=== PATIENT | female | born 1975 | race Caucasian/White ===

== ENCOUNTER 2016-10-27 07:46 | Day surgery (SDC) | payer BC, MEDICAID ==
[2016-10-24 11:23] LABS: HEMATOCRIT 33.8 % (36.0-47.0); HEMOGLOBIN 11.4 g/dL (12.0-15.5); HGB HCT DIFFERENCE 0.4; MEAN CORPUSCULAR HEMOGLOBIN 29.4 pg (27.0-33.4); MEAN CORPUSCULAR HGB CONC 33.7 g/dL (32.0-36.0); MEAN CORPUSCULAR VOLUME 87 fl (80-97); RED BLOOD COUNT 3.87 10^6/uL (3.72-5.28); RED CELL DISTRIBUTION WIDTH 14.2 % (11.5-14.0)
[2016-10-24 11:27] LABS: APPEARANCE,URINE CLEAR
[2016-10-24 11:28] LABS: BILIRUBIN,URINE NEGATIVE (NEGATIVE); GLUCOSE, URINE NEGATIVE (NEGATIVE); KETONES,URINE NEGATIVE (NEGATIVE); LEUKOCYTE ESTERASE,URINE NEGATIVE (NEGATIVE); NITRITE,URINE NEGATIVE (NEGATIVE); PROTEIN,URINE NEGATIVE (NEGATIVE); URINE SPECIFIC GRAVITY 1.017; UROBILINOGEN,URINE NEGATIVE mg/dL (<2.0)
[2016-10-24 11:41] LABS: BACTERIA,URINE 1+ /HPF; WBC,URINE RARE /HPF
--- NOTE | 2016-10-24 11:55 | EKG REPORT ---
SEVERITY:- BORDERLINE ECG - SINUS RHYTHM BORDERLINE R WAVE PROGRESSION, ANTERIOR LEADS : Confirmed by: Ahsan Rodriguez MD 24-Oct-2016 11:53:38
[~2016-10-27 07:46] MED LIST: LACTATED RINGERS 1000 ML IV PRN; LIDOCAINE 0.5% INJ-PF (5 MG/ML) 50 ML SDV SUBCUT PRN
[2016-10-27] MEDS ORDERED: FENTANYL CITRATE INJ/PF 100 MCG/2 ML AMPUL ONE (08:27)
[2016-10-27] MEDS ORDERED: MIDAZOLAM 2 MG/2 ML INJ ONE (08:28)
[2016-10-27] MEDS ORDERED: PROPOFOL INJ 200 MG/20 ML VIAL IV ONE (08:28)
[2016-10-27] MEDS ORDERED: MORPHINE SULFATE 10 MG/ML INJ ONE (08:28)
[2016-10-27 08:38] LABS: POTASSIUM 4.3 mmol/L (3.6-5.0)
[2016-10-27] MEDS ORDERED: METOCLOPRAMIDE HCL INJ/PF 10 MG/2 ML SDV ONE (08:41)
[2016-10-27] MEDS ORDERED: FAMOTIDINE INJ/PF 20 MG/2 ML SDV IV ONE (08:41)
[2016-10-27] MEDS ORDERED: SCOPOLAMINE HYDROBROMIDE 1.5 MG PATCH.TD72 ONE (08:44)
[2016-10-27] MEDS ORDERED: SCOPOLAMINE HYDROBROMIDE 1.5 MG PATCH.TD72 TD ONE (08:45)
[2016-10-27] MEDS ORDERED: DIPHENHYDRAMINE HCL 50 MG/ML VIAL IV PRN (09:49)
[2016-10-27] MEDS ORDERED: MEPERIDINE HCL/PF INJ 25 MG/1 ML DISP.SYRIN IV PRN (09:49)
[2016-10-27] MEDS ORDERED: OXYCODONE-ACETAMINOPHEN 5-325 MG TABLET PO PRN ×4 (09:49→10:10)
[2016-10-27] MEDS ORDERED: FENTANYL CITRATE INJ/PF 100 MCG/2 ML AMPUL IV PRN ×3 (09:49)
[2016-10-27] MEDS ORDERED: MORPHINE SULFATE 10 MG/ML INJ IV PRN (09:49)
[2016-10-27] MEDS ORDERED: PROMETHAZINE HCL INJ 25 MG/1 ML VIAL IV PRN ×2 (09:49)
[2016-10-27] MEDS ORDERED: RINGERS SOLUTION,LACTATED 1,000 ML IV PRN (10:08)
[2016-10-27] MEDS ORDERED: IBUPROFEN 800 MG TABLET PO PRN (10:09)
[2016-10-27] MEDS ORDERED: MORPHINE SULFATE 10 MG/ML INJ IM PRN (10:09)
[2016-10-27] MEDS ORDERED: ACETAMINOPHEN 100 ML IV ONE (10:24)
[2016-10-27 11:50] VITALS: BP 108/59
[2016-10-27] MEDS ORDERED: SUCCINYLCHOLINE CHLORIDE INJ 200 MG/10 ML VIAL ONE (14:23)
[2016-10-27] MEDS ORDERED: GLYCOPYRROLATE INJ 0.4 MG/2 ML VIAL ONE (14:23)
[2016-10-27] MEDS ORDERED: DEXAMETHASONE SOD PHOSPHATE INJ 4 MG/1 ML VIAL ONE (14:23)
[2016-10-27] MEDS ORDERED: LIDOCAINE 2% INJ-PF (20 MG/ML) 10 ML AMPUL ONE (14:23)
[2016-10-27] MEDS ORDERED: ONDANSETRON HCL INJ/PF 4 MG/2 ML SDV ONE (14:23)
[2016-10-27] MEDS ORDERED: KETOROLAC TROMETHAMINE 60 MG/2 ML SDV ONE (14:23)
--- NOTE | 2016-12-06 10:29 | OPERATIVE REPORT E ---
Operative Report NAME: SHELLI GUILLERMO : 1975 AGE: 41Y DATE OF SURGERY: 10/27/2016 ROOM: PREOPERATIVE DIAGNOSIS: MENORRHAGIA. POSTOPERATIVE DIAGNOSIS: MENORRHAGIA. OPERATION: 1. DIAGNOSTIC HYSTEROSCOPIC EXAMINATION. 2. DILATATION AND CURETTAGE. SURGEON: Tor Abrams D.O. ANESTHESIA: General endotracheal. COMPLICATIONS: None. TISSUE REMOVED OR ALTERED: Endometrial curettings. ESTIMATED BLOOD LOSS: 25 mL. FINDINGS: Thickened endometrium on diagnostic hysteroscopic examination. PROCEDURE: Patient was taken into the operating room where she was placed in the dorsal supine position upon the operating room table. She was then administered her general endotracheal anesthesia. Once this was found to be adequate, she was placed in the dorsal lithotomy position in [place] stirrups. She was then prepped and draped in a normal sterile fashion. An open-sided speculum was then placed inside the patient's vagina. The cervix was easily visualized and grasped on the anterior lip of the single-tooth tenaculum. The uterus was then sounded to 8 cm. The cervix was then dilated to a 26-Ukrainian using Tiffanie dilators. Following this, the diagnostic hysteroscopic device was put together and found to be operating properly. A diagnostic hysteroscopic examination was performed which revealed just a thickened endometrium, no evidence of fibroids, polyps, or foreign bodies within the uterine cavity. Following this, the hysteroscope was removed, dilatation and curettage was performed. The endometrial curettings were then sent for pathological analysis. The estimated blood loss was approximately 25 mL. Following this, all instruments were removed from the patient's vagina. There was excellent hemostasis noted. At this point in time, the procedure was terminated. All sponge, lap, needle counts were correct x2. The patient tolerated the procedure well. Patient was taken to the recovery room in stable condition. DICTATING PHYSICIAN: Tor Abrams DO [id number] PHY#: [id number] ID: [id number] JOB#: [id number] ACCT: [id number] cc:Tor Abrams D.O. >
== END 2016-10-27 11:45 | disposition home or self-care (01) ==
LOC: OROUT 07:46
PROVIDERS: ATTEND Obstetrics & Gynecology
PROC: 0UDB8ZX Extraction of Endometrium, Via Natural or Artificial Opening Endoscopic, Diagnostic (ICD-10-PCS; principal; 2016-10-27 09:45)
DX: N92.4 Excessive bleeding in the premenopausal period (principal); I10 Essential (primary) hypertension; E03.9 Hypothyroidism, unspecified; E11.9 Type 2 diabetes mellitus without complications; E66.9 Obesity, unspecified; R01.1 Cardiac murmur, unspecified; G47.33 Obstructive sleep apnea (adult) (pediatric); Z68.42 Body mass index [BMI] 45.0-49.9, adult; Z79.84 Long term (current) use of oral hypoglycemic drugs; Z79.899 Other long term (current) drug therapy
CPT/HCPCS: 93005; 36415 ×2; 82947; 84132; 85027; 81025; 81001; 88305 ×2; 93010; 58558; J2250; J1100; J1885; J3010; J2765; J0330; J2405; J2704; S0028; J3490; J0131; 952; J2270

== ENCOUNTER 2018-03-26 09:55 | Emergency (ER) | payer BC ==
--- NOTE | 2018-03-26 10:27 | ER Document Report ---
HPI - HPI Patient complains to provider of: Not feeling well Onset: Other - Monday after taoist Quality of pain: Achy Pain Level: 4 Context: 42-year-old female started feeling ill after taoist on Monday with body aches myalgias fever nausea she vomited once. No abdominal pain or diarrhea. No flank pain. No runny nose or cough. No chest pain or shortness of breath. No vaginal discharge. Associated Symptoms: None Exacerbated by: Denies Relieved by: Denies Similar symptoms previously: No Recently seen / treated by doctor: No - ROS ROS below otherwise negative: Yes Systems Reviewed and Negative: Yes All other systems reviewed and negative - REPRODUCTIVE Reproductive: DENIES: : - DERM Skin Color: Flushed Past Medical History - General Information source: Patient - Social History Smoking Status: Unknown if Ever Smoked Chew tobacco use (# tins/day): No Frequency of alcohol use: None Drug Abuse: None Lives with: Spouse/Significant other Family History: Reviewed & Not Pertinent Patient has suicidal ideation: No Patient has homicidal ideation: No - Past Medical History Cardiac Medical History: Reports: Hx Hypertension Endocrine Medical History: Reports: Hx Diabetes Mellitus Type 2 Past Surgical History: Reports: Hx Section - x 2 - Immunizations Hx Diphtheria, Pertussis, Tetanus Vaccination: Yes Vertical Provider Document - CONSTITUTIONAL Agree With Documented VS: Yes Exam Limitations: No Limitations General Appearance: No Apparent Distress - INFECTION CONTROL TRAVEL OUTSIDE OF THE [place] IN LAST 30 DAYS: No - HEENT HEENT: Normocephalic. negative: Conjuctival Injection, Pharyngeal Erythema, Tympanic Membrane Red - NECK Neck: Supple. negative: Lymphadenopathy-Left, Lymphadenopathy-Right - RESPIRATORY Respiratory: Breath Sounds Normal, No Respiratory Distress - CARDIOVASCULAR Cardiovascular: Regular Rate, Regular Rhythm - GI/ABDOMEN Gastrointestinal: Abdomen Soft, Abdomen Non-Tender, No Organomegaly, Normal Bowel Sounds - BACK Back: negative: CVA Tenderness-Right, CVA Tenderness-Left - MUSCULOSKELETAL/EXTREMETIES Musculoskeletal/Extremeties: MAEW - NEURO Level of Consciousness: Awake - DERM Integumentary: No Rash Course - Re-evaluation Re-evalutation: 03/26/18 12:23 CBC is normal, urinalysis shows greater than 182 WBCs and 182 RBCs. Urine culture is pending. Since patient has had a low-grade fever, I will give Rocephin 1 g IV since she has an IV. 03/26/18 12:35 Patient is on her menses which would explain the RBCs in the urine 03/26/18 pt feels better, will start on keflex while the urine ultra is pending. Tylenol is been given since her temperature went up to 101.8. 03/28/18 18:42 Urine culture shows greater than 100,000 colonies of E. coli no sensitivities yet - Vital Signs Vital signs: Temp Pulse Resp BP Pulse Ox 99.1 F 110 H 16 117/67 99 03/26/18 09:59 03/26/18 09:59 03/26/18 09:59 03/26/18 09:59 03/26/18 09:59 - Laboratory Result Diagrams: 03/26/18 11:09 03/26/18 11:09 Discharge - Discharge Clinical Impression: Pyuria, Myalgia Fever Qualifiers: Fever type: due to other condition Qualified Code(s): R50.81 - Fever presenting with conditions classified elsewhere Condition: Good Disposition: HOME, SELF-CARE Instructions: Acetaminophen, Cephalexin ([facility]), Myalagia (Muscle Pain) ([facility]), Rocephin ([facility]) Additional Instructions: rest Plenty of fluids Return to the emergency room if symptoms worsen Tylenol up to 4000 mg a day for fever and body aches Urine culture is pending You have been given Rocephin 1 g IV for possible urinary tract infection because you had white blood cells in your urine You have been given cephalexin 500 mg 4 times a day for possible urinary traction pending the urine culture Prescriptions: Cephalexin Monohydrate [Keflex 500 mg Capsule] 500 mg PO QID #28 capsule Forms: Return to Work Referrals: GILBERT CUMMINGS, [employer] [Primary Care Provider] - Follow up as needed
[2018-03-26] MEDS ORDERED: NORMAL SALINE 1000 ML 1,000 ML IV ONE ×2 (10:47→11:45)
[2018-03-26 11:28] LABS: ABSOLUTE LYMPHOCYTES (AUTO) 0.7 10^3/uL (0.5-4.7); ABSOLUTE MONOCYTES (AUTO) 0.4 10^3/uL (0.1-1.4); ABSOLUTE NEUT (AUTO) 7.4 10^3/uL (1.7-8.2); BASOPHILS % (AUTO) 0.2 % (0-2); HEMATOCRIT 36.5 % (36.0-47.0); HEMOGLOBIN 12.6 g/dL (12.0-15.5); LYMPHOCYTES % (AUTO) 8.5 % (13-45); MEAN CORPUSCULAR HEMOGLOBIN 29.9 pg (27.0-33.4); MEAN CORPUSCULAR HGB CONC 34.5 g/dL (32.0-36.0); MEAN CORPUSCULAR VOLUME 87 fl (80-97); MONOCYTES % (AUTO) 4.5 % (3-13); PLATELET COUNT 182 10^3/uL (150-450); RED BLOOD COUNT 4.21 10^6/uL (3.72-5.28); RED CELL DISTRIBUTION WIDTH 15.2 % (11.5-14.0); SEGMENTED NEUTROPHILS % (AUTO) 86.8 % (42-78); TOTAL CELLS COUNTED % (AUTO) 100 %; WHITE BLOOD COUNT 8.5 10^3/uL (4.0-10.5)
[2018-03-26 11:42] LABS: ALANINE AMINOTRANSFERASE 19 U/L (9-52); ALBUMIN 4.2 g/dL (3.5-5.0); ALKALINE PHOSPHATASE 73 U/L (38-126); ANION GAP 11 (5-19); ASPARTATE AMINO TRANSFERASE 19 U/L (14-36); BILIRUBIN,DIRECT 0.4 mg/dL (0.0-0.4); BILIRUBIN,TOTAL 0.8 mg/dL (0.2-1.3); BLOOD UREA NITROGEN 9 mg/dL (7-20); CALCIUM 9.1 mg/dL (8.4-10.2); CARBON DIOXIDE 31 mmol/L (22-30); CHLORIDE 95 mmol/L (98-107); GLUCOSE 107 mg/dL (75-110); POTASSIUM 3.9 mmol/L (3.6-5.0); SODIUM 137.2 mmol/L (137-145); TOTAL PROTEIN 7.4 g/dL (6.3-8.2)
[2018-03-26 12:03] LABS: APPEARANCE,URINE SLIGHTLY-CLOUDY; BILIRUBIN,URINE NEGATIVE (NEGATIVE); GLUCOSE, URINE NEGATIVE (NEGATIVE); KETONES,URINE NEGATIVE (NEGATIVE); LEUKOCYTE ESTERASE,URINE MODERATE (NEGATIVE); NITRITE,URINE NEGATIVE (NEGATIVE); PROTEIN,URINE 100 mg/dL (NEGATIVE); URINE SPECIFIC GRAVITY 1.015; UROBILINOGEN,URINE NEGATIVE mg/dL (<2.0)
[2018-03-26 12:04] LABS: COLOR,URINE PINK
[2018-03-26] MEDS ORDERED: CEFTRIAXONE 1 GM/D5W RTU 1 GM/50 ML RTUPB IV ONE (12:23)
[2018-03-26 13:23] VITALS: BP 136/71
[2018-03-26] MEDS ORDERED: ACETAMINOPHEN 325 MG TABLET PO ONE (13:30)
== END 2018-03-26 14:22 | disposition home or self-care (01) ==
LOC: ER 09:55
DX: R30.0 Dysuria (principal); M79.10 Myalgia, unspecified site; R50.81 Fever presenting with conditions classified elsewhere; E11.9 Type 2 diabetes mellitus without complications; I10 Essential (primary) hypertension
CPT/HCPCS: 99284; 96361; 96365; 36415; 87086; 85025; 81025; 87088; 80053; 81001; 87186; J7030; J0696